=== PATIENT | female | born 1995 | race American Indian/Alaskan Native ===

== ENCOUNTER 2019-03-10 12:52 | Emergency (ER) | payer MEDICAID, OTHER ==
[2019-03-10 13:11] VITALS: BP 103/67
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
== END 2019-03-10 15:58 | disposition home or self-care (01) ==
LOC: ED 12:52
DX: R10.32 Left lower quadrant pain (principal); R07.81 Pleurodynia; V89.2XXA Person injured in unspecified motor-vehicle accident, traffic, initial encounter; Y93.89 Activity, other specified; Y92.488 Other paved roadways as the place of occurrence of the external cause; Y99.8 Other external cause status
CPT/HCPCS: 71111; 76705; 99283